=== PATIENT | female | born 1960 | race Caucasian/White ===

== ENCOUNTER → 2016-09-13 | Outpatient (CLI) | payer OTHER ==
[~2016-09-13] MED LIST: CLOMIPRAMINE25 MG PO; FLUVOXAMINE MAL50 MG PO; VALIUM5 MG PO; VICODIN 5/500 505 MG PO
[2016-09-13 15:41] LABS: HEMOGLOBIN A1c 5.3 % (4.8-5.6)
[2016-09-13 16:06] LABS: VITAMIN D, 25-HYDROXY 32.8 ng/mL (30-100)
[2016-09-14 06:10] LABS: COMPLEMENT C4 001834 30 mg/dL (14-44)
[2016-09-15 12:09] LABS: PHOSPHOLIPIDS 001727 291 mg/dL (150-250)
== END | disposition home or self-care (01) ==
LOC: LAB 14:11
PROVIDERS: Psychiatry & Neurology Neuromuscular Medicine
DX: M79.605 Pain in left leg (principal); M79.604 Pain in right leg; R23.1 Pallor; R20.0 Anesthesia of skin; R20.2 Paresthesia of skin

== ENCOUNTER → 2016-10-03 | Outpatient (CLI) | payer OTHER | END | disposition home or self-care (01) | LOC: MAMMO 14:53 | DX: Z12.31 Encounter for screening mammogram for malignant neoplasm of breast (principal) ==

== ENCOUNTER 2017-08-29 19:22 | Emergency (ER) | payer OTHER ==
[~2017-08-29] VITALS: Ht 165.1 cm; Wt 72.1 kg
[2017-08-29] MEDS ORDERED: ZITHROMAX250 MG PO (20:48)
== END 2017-08-29 21:19 | disposition home or self-care (01) ==
LOC: ED 19:22
DX: J20.9 Acute bronchitis, unspecified (principal); F17.200 Nicotine dependence, unspecified, uncomplicated; Z88.1 Allergy status to other antibiotic agents

== ENCOUNTER → 2018-02-18 | Outpatient (CLI) | payer OTHER ==
[~2018-02-18] MED LIST changes: +AMINOPHYLLIN200 MG PO; +CYCLOBENZAPRINE10 MG PO; +ZITHROMAX250 MG PO
[2018-02-18 14:05] LABS: FREE T4 0.74 ng/dl (0.76-1.46)
[2018-02-18 14:10] LABS: THYROID STIM HORMONE (HS) 1.36 uIU/ml (0.358-4.75)
== END | disposition home or self-care (01) ==
LOC: LAB 12:45
PROVIDERS: Family Medicine
DX: E55.9 Vitamin D deficiency, unspecified (principal); E03.9 Hypothyroidism, unspecified; E61.2 Magnesium deficiency

== ENCOUNTER → 2019-04-22 | Outpatient (CLI) | payer OTHER ==
[2019-04-22 18:11] LABS: URINE AMPHETAMINES < 1000 (1000ng/ml); URINE BARBITURATES < 200 (200ng/ml); URINE BENZODIAZEPINES > 200 (200ng/ml); URINE CANNABINOIDS (THC) < 50 (50ng/ml); URINE COCAINE < 300 (300ng/ml); URINE METHADONE < 300 (300ng/ml); URINE OPIATES > 300 (300ng/ml)
[2019-04-22 18:19] LABS: URINE PHENCYCLIDINE < 25 (25ng/ml)
== END | disposition home or self-care (01) ==
LOC: LAB 13:54
PROVIDERS: Nurse Practitioner Family
DX: Z51.81 Encounter for therapeutic drug level monitoring (principal); Z79.899 Other long term (current) drug therapy

== ENCOUNTER 2021-04-09 17:39 | Emergency (ER) | payer OTHER ==
[~2021-04-09] VITALS: Ht 165.1 cm; Wt 81.6 kg
[2021-04-09 19:04] LABS: BILIRUBIN Negative (Negative); BLOOD Negative (Negative); CLARITY Cloudy (Clear); COLOR Yellow (Yellow); GLUCOSE Negative (Negative); KETONE Trace (Negative); LEUKO ESTERASE Negative (Negative); NITRITE Negative (Negative); PH 5.5 (4.5-8.0); SPECIFIC GRAVITY >= 1.030 (1.001-1.030); UROBILINOGEN 0.2 E.U./dl (0.0-1.0)
[2021-04-09 19:15] LABS: BACTERIA TRACE; CALCIUM OXALATE CRYSTALS Trace; MUCOUS 3+; WBC 0-2 wbc/hpf (0-5)
[2021-04-09 19:50] LABS: BASO # 0.1 10*3/uL (0.0-0.1); BASO % 0.6 % (0.0-1.0); EOS # 0.4 10*3/uL (0.0-0.4); EOS % 4.5 % (1.0-4.0); HEMATOCRIT 41.5 % (37.0-47.0); LYMPH # 2.7 10*3/uL (1.3-4.4); LYMPH % 34.3 % (27.0-41.0); MEAN CELL VOLUME 92.2 fl (81.0-99.0); MEAN CORPUSCULAR HGB 30.9 pg (27.0-31.0); MEAN CORPUSCULAR HGB CONC 33.5 g/dl (33.0-37.0); MEAN PLATELET VOLUME 9.7 fl (9.6-12.3); MONO # 0.6 10*3/uL (0.1-1.0); MONO % 7.4 % (3.0-9.0); NEUT # 4.2 10*3/uL (2.3-7.9); NEUT % 52.9 % (47.0-73.0); PLATELET COUNT AUTOMATED 278 10*3/uL (130-400)
[2021-04-09 20:07] LABS: ALKALINE PHOSPHATASE 142 U/L (45-117); BUN 21 mg/dl (7-24); CHLORIDE 112 mmol/L (98-107); CREATININE 0.62 mg/dL (0.55-1.02); LIPASE 78 U/L (73-393); POTASSIUM 3.9 mmol/L (3.5-5.1); SGOT/AST 16 IU/L (3-35); SGPT/ALT 22 U/L (12-78); SODIUM 142 mmol/L (136-145); TOTAL PROTEIN 6.6 gm/dL (6.4-8.2)
== END 2021-04-09 23:12 | disposition home or self-care (01) ==
LOC: ED 17:39
PROVIDERS: Physician Assistant
DX: R10.9 Unspecified abdominal pain (principal); Z91.040 Latex allergy status; Z88.8 Allergy status to other drugs, medicaments and biological substances